=== PATIENT | female | born 2000 | race Two or more races ===

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

== ENCOUNTER 2019-02-03 09:25 | Emergency (ER) | payer MEDICAID ==
[~2019-02-03] VITALS: Ht 160 cm; Wt 97.1 kg
[2019-02-03 09:49] VITALS: BP 126/77
[2019-02-03] MEDS ORDERED: cefTRIAXone SOD 1,000 MG VL IM ONE (10:15)
[2019-02-03] MEDS ORDERED: methylPREDNISolone SOD SUCC 125 MG/2 ML VL IM ONE (10:15)
== END 2019-02-03 11:06 | disposition home or self-care (01) ==
LOC: ER 09:25
DX: J03.90 Acute tonsillitis, unspecified (principal)
CPT/HCPCS: 81002; 81025; 96372; 99283; J0696; J2930

== ENCOUNTER 2019-02-04 20:01 | Emergency (ER) | payer MEDICAID ==
[~2019-02-04] VITALS: Ht 160 cm; Wt 97.1 kg
[2019-02-04 20:19] VITALS: BP 148/76
[2019-02-04] MEDS ORDERED: AZITHROMYCIN 250 MG TAB PO ONE (21:15)
[2019-02-04] MEDS ORDERED: cefTRIAXone SOD 1,000 MG VL IM ONE (21:15)
== END 2019-02-04 21:40 | disposition home or self-care (01) ==
LOC: ER 20:04
DX: N39.0 Urinary tract infection, site not specified (principal); R07.0 Pain in throat; T36.0X5A Adverse effect of penicillins, initial encounter; Y92.89 Other specified places as the place of occurrence of the external cause
CPT/HCPCS: 81002; 81025; 96372; 99283; J0696

== ENCOUNTER 2020-12-28 22:32 | Emergency (ER) | payer MEDICAID ==
[~2020-12-28] VITALS: Ht 157.5 cm; Wt 90.7 kg
[2020-12-28] MEDS ORDERED: SODIUM CHLORIDE 0.9% 1,000 ML IV ONE (22:45)
[2020-12-28] MEDS ORDERED: methylPREDNISolone SOD SUCC 125 MG/2 ML VL IV ONE (22:45)
[2020-12-28] MEDS ORDERED: FAMOTIDINE (10MG/ML) 2ML VL IV ONE (22:45)
[2020-12-28] MEDS ORDERED: EPINEPHrine HCL 1 MG/1 ML AMP IM ONE ×2 (22:45)
[2020-12-28] MEDS ORDERED: diphenhdrAMINE HCL 50 MG/1 ML VL IV ONE (22:45)
[2020-12-29 02:00] VITALS: BP 105/59
== END 2020-12-29 03:20 | disposition home or self-care (01) ==
LOC: ER 22:32
DX: T78.2XXA Anaphylactic shock, unspecified, initial encounter (principal); X58.XXXA Exposure to other specified factors, initial encounter; Y93.89 Activity, other specified; Y92.89 Other specified places as the place of occurrence of the external cause; Y99.8 Other external cause status
CPT/HCPCS: 96361; 96372; 96374; 96375; 99284; J0171; J1200; J2930; J3490; J7030

== ENCOUNTER 2021-01-01 09:54 | Emergency (ER) | payer MEDICAID ==
[~2021-01-01] VITALS: Ht 157.5 cm; Wt 86.2 kg
[2021-01-01 10:15] VITALS: BP 124/92
[2021-01-01] MEDS ORDERED: cefTRIAXone SOD 1,000 MG VL IM ONE (10:30)
== END 2021-01-01 11:04 | disposition home or self-care (01) ==
LOC: ER 09:54
DX: J03.90 Acute tonsillitis, unspecified (principal)
CPT/HCPCS: 96372; 99283; J0696

== ENCOUNTER 2021-02-16 10:59 | Emergency (ER) | payer MEDICAID ==
[~2021-02-16] VITALS: Ht 160 cm; Wt 90.7 kg
[2021-02-16 11:48] VITALS: BP 137/80
== END 2021-02-16 12:42 | disposition home or self-care (01) ==
LOC: ER 10:59
DX: J03.80 Acute tonsillitis due to other specified organisms (principal)

== ENCOUNTER 2021-04-05 13:47 | Emergency (ER) | payer MEDICAID ==
[~2021-04-05] VITALS: Ht 157.5 cm; Wt 108.9 kg
[2021-04-05 13:47] VITALS: BP 122/82
== END 2021-04-05 16:32 | disposition home or self-care (01) ==
LOC: ER 13:47
DX: R23.4 Changes in skin texture (principal); L25.8 Unspecified contact dermatitis due to other agents; T50.905A Adverse effect of unspecified drugs, medicaments and biological substances, initial encounter; Y92.9 Unspecified place or not applicable

== ENCOUNTER 2021-05-17 09:40 | Emergency (ER) | payer MEDICAID ==
[~2021-05-17] VITALS: Ht 157.5 cm; Wt 95.3 kg
[2021-05-17 10:03] VITALS: BP 142/66
== END 2021-05-17 10:26 | disposition home or self-care (01) ==
LOC: ER 09:40
DX: J03.90 Acute tonsillitis, unspecified (principal); Z88.0 Allergy status to penicillin
CPT/HCPCS: 81025

== ENCOUNTER 2021-07-04 11:40 | Emergency (ER) | payer MEDICAID ==
[~2021-07-04] VITALS: Ht 157.5 cm; Wt 90.7 kg
[2021-07-04] MEDS ORDERED: cefTRIAXone SOD 1,000 MG VL IM ONE (14:00)
[2021-07-04 14:02] VITALS: BP 121/64
[2021-07-04] MEDS ORDERED: LIDOCAINE 1% HCL (LOCAL ANESTH.) INJ 20ML MDV ONE (14:12)
== END 2021-07-04 14:44 | disposition home or self-care (01) ==
LOC: ER 11:40
DX: J03.90 Acute tonsillitis, unspecified (principal); Z88.0 Allergy status to penicillin
CPT/HCPCS: 96372; 99283; J0696; J2001

== ENCOUNTER 2021-08-13 09:11 | Emergency (ER) | payer MEDICAID ==
[~2021-08-13] VITALS: Ht 157.5 cm; Wt 95.3 kg
[2021-08-13 09:58] VITALS: BP 144/94
[2021-08-13] MEDS ORDERED: cefTRIAXone SOD 1,000 MG VL IM ONE (10:45)
[2021-08-13] MEDS ORDERED: methylPREDNISolone SOD SUCC 125 MG/2 ML VL IM ONE (10:45)
== END 2021-08-13 11:06 | disposition home or self-care (01) ==
LOC: ER 09:11
DX: J03.90 Acute tonsillitis, unspecified (principal); Z20.822 Contact with and (suspected) exposure to COVID-19; Z88.0 Allergy status to penicillin
CPT/HCPCS: 36415; 87426; 96372; 99284; J0696; J2930

== ENCOUNTER 2021-08-18 19:56 | Emergency (ER) | payer MEDICAID ==
[~2021-08-18] VITALS: Ht 157.5 cm; Wt 95.3 kg
[2021-08-19] MEDS ORDERED: methylPREDNISolone SOD SUCC 125 MG/2 ML VL IV ONE (00:15)
[2021-08-19] MEDS ORDERED: SODIUM CHLORIDE 0.9% 1,000 ML IV ONE (00:15)
[2021-08-19] MEDS ORDERED: KETOROLAC TROMETH 30 MG/ML 1ML VIAL IV ONE (00:15)
[2021-08-19] MEDS ORDERED: cefTRIAXone 1GM/50ML D5W 50 ML IV ONE (00:15)
[2021-08-19] MEDS ORDERED: CLINDAMYCIN 600MG IV 50 ML IV ONE (01:15)
[2021-08-19 02:35] LABS: Basophils # (auto) 0 10 ^3/uL (0-0.2); Basophils % (auto) 0.2 % (0.0-2.0); Eosinophils # (auto) 0.2 10 ^3/uL (0-0.8); Hemoglobin 9.3 g/dL (12.2-16.2)
[2021-08-19 02:37] LABS: Eosinophils % (auto) 1.4 % (0.0-7.0); Hematocrit 28.9 % (36.0-46.0); Lymphocytes # (auto) 2.8 10 ^3/uL (0.4-5.4); Lymphocytes % (auto) 18.3 % (10.0-50.0); Mean Corpuscular Hemoglobin 26.6 pg (28.0-32.0); Mean Corpuscular Hgb Conc. 32.1 g/dL (32.0-36.0); Mean Corpuscular Volume 82.9 fL (80.0-100.0); Monocytes % (auto) 6.5 % (0.0-12.0); Neutrophils # (auto) 11.1 10 ^3/uL (1.6-8.6); Neutrophils % (auto) 73.6 % (37.0-80.0); Red Blood Cells 3.49 10^6/uL (4.0-5.20); Red Cell Distribution Width 14.8 % (11.8-14.3); White Blood Cell 15.1 10^3/uL (4.4-10.8)
[2021-08-19 02:51] LABS: INR 1.08 (0.9-1.15)
[2021-08-19 02:54] LABS: BUN/Creatinine Ratio 15.6; Calcium 6.2 mg/dL (8.5-10.1)
[2021-08-19 02:57] LABS: Bilirubin, Total 0.3 mg/dL (0.2-1.0); Total Protein 5.2 g/dL (6.4-8.2)
[2021-08-19 03:05] LABS: Potassium 2.8 mmol/L (3.5-5.1)
[2021-08-19] MEDS ORDERED: POTASSIUM EFFERVESENT TAB 25 MEQ PO ONE ×2 (03:15→03:30)
[2021-08-19] MEDS ORDERED: POTASSIUM EFFERVESENT TAB 25 MEQ ONE (03:27)
[2021-08-19] MEDS ORDERED: ONDANSETRON ODT 4 MG TAB PO ONE (04:30)
[2021-08-19 05:28] LABS: Albumin 3.2 g/dL (3.4-5.0); BUN/Creatinine Ratio 7.8; Calcium 8.8 mg/dL (8.5-10.1); Potassium 4.9 mmol/L (3.5-5.1)
[2021-08-19 05:30] LABS: Bilirubin, Total 0.6 mg/dL (0.2-1.0); Total Protein 7.6 g/dL (6.4-8.2)
[2021-08-19] MEDS ORDERED: IODIXANOL 320MG/ML 100ML BTL IV ONE (06:00)
[2021-08-19 07:09] LABS: Basophils # (auto) 0 10 ^3/uL (0-0.2); Basophils % (auto) 0.2 % (0.0-2.0); Eosinophils # (auto) 0 10 ^3/uL (0-0.8); Eosinophils % (auto) 0.1 % (0.0-7.0); Hematocrit 41.3 % (36.0-46.0); Hemoglobin 13.7 g/dL (12.2-16.2); Lymphocytes # (auto) 1.5 10 ^3/uL (0.4-5.4); Mean Corpuscular Hemoglobin 27.1 pg (28.0-32.0); Mean Corpuscular Hgb Conc. 33.2 g/dL (32.0-36.0); Mean Corpuscular Volume 81.5 fL (80.0-100.0); Monocytes # (auto) 0.2 10 ^3/uL (0-1.3); Neutrophils # (auto) 19.1 10 ^3/uL (1.6-8.6); Neutrophils % (auto) 91.7 % (37.0-80.0); Red Blood Cells 5.07 10^6/uL (4.0-5.20); Red Cell Distribution Width 14.9 % (11.8-14.3); White Blood Cell 20.8 10^3/uL (4.4-10.8)
[2021-08-19 08:11] VITALS: BP 102/71
== END 2021-08-19 10:24 | disposition home or self-care (01) ==
LOC: ER 20:00
DX: J03.01 Acute recurrent streptococcal tonsillitis (principal); J98.51 Mediastinitis; J35.1 Hypertrophy of tonsils; D72.829 Elevated white blood cell count, unspecified; E87.6 Hypokalemia; E46 Unspecified protein-calorie malnutrition; Z20.822 Contact with and (suspected) exposure to COVID-19; Z88.0 Allergy status to penicillin
CPT/HCPCS: 36415; 70491; 71250; 80053; 85025; 85610; 86308; 87426; 87804; 87880; 96360; 99285; J0696; J1885; J2930; J3490; J7030; Q0162; Q9967

== ENCOUNTER 2021-10-07 21:08 | Emergency (ER) | payer MEDICAID ==
[~2021-10-07] VITALS: Ht 157.5 cm; Wt 90.7 kg
[2021-10-07 21:19] VITALS: BP 131/72
== END 2021-10-08 03:47 | disposition left against medical advice (07) ==
LOC: ER 21:09
DX: J02.9 Acute pharyngitis, unspecified (principal); Z53.21 Procedure and treatment not carried out due to patient leaving prior to being seen by health care provider